=== PATIENT | female | born 1950 | race Caucasian/White ===

== ENCOUNTER 2017-01-13 14:23 | Inpatient (IN) | payer OTHER ==
--- NOTE | ~2017-01-13 | CT2 ---
[facility] A Service of [facility] RADIOLOGY TEXT RESULTS PATIENT: ALEXX GUTIÉRREZ LOCATION: [facility] 55- : [birth year] UNIT #: [id number] AGE: [address]: Brionna Sandra MD SEX: F ORDER DR: [id number] [facility] [address] [place], [place] [address] [id number] I MR#: [id number] Acc #: [id number] NAME: ALEXX GUTIÉRREZ : 1950 SEX: F STUDY DATE/TIME: 01/13/2017 21:37 UNIT: [facility] ROOM: [facility] STUDY DESCRIPTION: CT Abd and Pelv W Cont Attending Physician: Brionna Sandra M.D. Ordering Physician: Julián Arthur M.D. Primary Care Physician: Brionna Sandra M.D. MEDICAL IMAGING REPORT This report is preliminary unless electronic signature is present EXAM CT abdomen and pelvis with oral and IV contrast HISTORY Epigastric pain for [address]. [address] abdomen and pelvis was performed with oral and IV contrast. This CT exam was performed with one or more of the following radiation dose reduction techniques: Automatic exposure control, adjustment of mA and/or kV according to patient size, and iterative reconstruction. CT ABDOMEN: Incidental 1.5-cm cyst in the left margin of the hepatic dome. Incidental pneumobilia. Cholecystectomy. Mild extrahepatic biliary ductal dilatation, likely physiologic. The spleen, pancreas, and adrenal glands are unremarkable. Mild ectasia of the mid abdominal aorta measuring up to 2.8 cm. Mild multifocal parenchymal scarring in both kidneys. Incidental punctate calcification in the head of the pancreas. No ascites. No inflammatory stranding. No bowel dilatation. CT PELVIS: Normal appendix. Hysterectomy. No free fluid. Urinary bladder is normal. No bowel wall thickening. Spine stimulator power pack over the posterior left pelvis with leads extending into the lower thoracic canal. IMPRESSION 1. No acute findings in the abdomen or pelvis. 2. No inflammatory changes or free fluid. 3. Cholecystectomy and hysterectomy. 4. Normal appendix. 5. Ectasia of the infrarenal abdominal aorta measuring 2.8 cm. 6. Mild parenchymal scarring in both kidneys. [facility]. [facility] A Service of [facility] RADIOLOGY TEXT RESULTS PATIENT: ALEXX GUTIÉRREZ LOCATION: [facility] [id number] : [birth year] UNIT #: [id number] AGE: [address]: Brionna Sandra MD SEX: F ORDER DR: Dictated by... Shar Nance M.D. THIS IS AN ELECTRONICALLY VERIFIED REPORT Shar Nance M.D. at 01/14/2017 2:03 PM DFL/bill TD: 01/14/2017 00:39 JOB #: [id number] MEDICAL IMAGING REPORT Page 1 of 1 COPY
--- NOTE | ~2017-01-13 | A ---
[facility] Therapy DATE: 01/14/17 Patient: ALEXX GUTIÉRREZ Physician: NAISAR Address: [address] [facility] Room/Bed: [address] [place] [address], Zip: [place] [phone] Admit Date: 01/13/17 Date of : 54 Height: Weight: 132 60 NUTRITIONAL ASSESSMENT: REASON: 4 NUTRITION RISK PT RE: POOR PO INTAKE + WEIGHT LOSS, ALSO CONSULT RE: WEIGHT LOSS PT IS 66 Y.O. FEMALE ADMITTED FOR ABDOMINAL PAIN PMH: GALLSTONE PANCREATITIS, GALLBLADDER DISEASE, HTN, ANXIETY, DEPRESSION, DYSLIPIDEMIA, COPD Anthropometrics: 4'10", WT: 132# (PER PT) (60 KG), BMI: 27.6 Labs: GFR: 53.0 Meds: PROTONIX, ZOFRAN, D5% I/O & Bowel function: -/1836, 1 BM NOTED Skin Integrity: NO KNOWN SKIN ISSUES Estimated Nutrition Needs: INCREASED NEEDS 2' WEIGHT LOSS NOTED, DECREASED PO INTAKE AND APPETITE NOTED Assessment: CHART REVIEWED AND EVENTS NOTED. PT SEEN FOR WEIGHT LOSS + POOR PO INTAKE. PT FEELING NAUSEOUS AND C/O MIGRAINE AT TIME OF VISIT CONFIRMING DECREASED PO INTAKE 2' DECREASED APPETITE PAST MONTH. PT REPORTS LOSING ~15# PAST MONTH/SEVERE WEIGHT LOSS NOTED (PT NOTES UBW IS ~145#). THIS RD ENCOURAGED SLOW GRADUAL PO INTAKE + SUPPLEMENT INTAKE, PT AGREED TO ENSURE SHAKES BID + 6 SMALL MEALS, RD TO ORDER. OF NOTE, RD ATTEMPTED TO PROVIDE WRITTEN AND VERBAL HH/LOW FAT DIET EDUCATION, BUT PT NOT APPROPRIATE FOR EDUCATION AT THIS TIME. (RD LEFT WRITTEN DIET EDUCATION AT BEDSIDE). RD TO FOLLOW AND MAKE RECOMMENDATIONS BELOW. Dx: INADEQUATE PROTEIN-ENERGY INTAKE R/T CURRENT DIAGNOSIS, CURRENT CLINICAL CONDITION, DECREASED APPETITE AEB PT REPORT ABOVE, ~15# WEIGHT LOSS NOTED IN PAST MONTH. Intervention: 1. REGULAR DIET 2. ENSURE SHAKES BID Monitoring, Evaluation and Goals: 1. ORAL INTAKE; ONCE INITIATED, CONSUME/TOLERATE >50% OF MEALS AND SUPPLEMENTS 2. WEIGHTS; PREVENT FURTHER WEIGHT LOSS 3. GI; PROMOTE REGULAR GI FUNCTION MONITOR: [facility] DATE: 01/14/17 Patient: ALEXX GUTIÉRREZ Physician: LUISISAR Address: [address] [facility] Room/Bed: [facility], Zip: [place] [address] Admit Date: 01/13/17 Date of : 54 Height: Weight: 132 60 -PO INTAKE/APPETITE -WEIGHTS -SUPPLEMENT INTAKE -EDUCATION NEEDS Recommendations: 1. PLEASE ORDER AILEEN ENSURE SHAKES BID W/MEALS FOR ADDITIONAL PROTEIN AND KCAL 2. PLEASE ADD 6 SMALL MEALS TO CURRENT DIET ORDER TO BETTER FACILITATE PO INTAKE 3. APPRECIATE FAMILY AND STAFF TO ENCOURAGE ADEQUATE PO INTAKE, ASSIST W/ORDERING MEALS NEEDED 4. RD TO F/U ON EDUCATION NEEDS RD WILL F/U PER PROTOCOL PT IS MODERATELY COMPROMISED Respectfully, ARTURO RUSSO MS, RD, LD [facility] cc: client file
--- NOTE | ~2017-01-13 | OR ---
Unit #: [id number] #: [id number] Patient: ALEXX GUTIÉRREZ [id number] [address] [address] [id number] I MR#: [id number] NAME: ALEXX GUTIÉRREZ ROOM: 553 Date of Procedure: 01/14/2017 Admission Date: 01/13/2017 Surgeon: Julián Arthur M.D. : 1950 Attending Physician: Brionna Sandra M.D. Primary Care Physician: Brionna Sandra M.D. OPERATIVE REPORT JOB NOTE: CC: PRIMARY CARE PHYSICIAN PROCEDURE PERFORMED Esophagogastroduodenoscopy with biopsy INDICATIONS FOR PROCEDURE A 66-year-old female with significant epigastric and right upper quadrant pain, undergoing evaluation of upper endoscopy. CT scan and lab work has been negative. MEDICATIONS Monitored anesthesia. POSTOPERATIVE FINDINGS 1. Normal esophagus. 2. 6 mm antral ulcer along with significant gastritis and duodenitis. Biopsies taken looking for H pylori. PLAN Continue PPI therapy. Follow up on the pathology report. DESCRIPTION OF PROCEDURE The patient was explained of the procedure, risks, and benefits along with risks and benefits of anesthesia. She was brought to the endoscopy room. Propofol anesthesia was given. Bite block was placed. The scope was passed down the mouth into esophagus, stomach, duodenum, and distal duodenum. Findings as described. Biopsies were taken. Gently, I pulled the scope of the patient's mouth. She tolerated it well. Dictated by... Clay Stanton/micheal TD: 01/14/2017 11:13 JOB #: [id number] Unit #: [id number] #: [id number] Patient: ALEXX GUTIÉRREZ OPERATIVE REPORT Page 1 of 1 X Julián Arthur MD X PROCEDURE OPERATIVE NOTE
--- NOTE | ~2017-01-13 | CT71 ---
[facility] A Service of [facility] RADIOLOGY TEXT RESULTS PATIENT: ALEXX GUTIÉRREZ LOCATION: [place] [address] : [birth year] UNIT #: [id number] AGE: [address]: Brionna Sandra MD SEX: F ORDER DR: [id number] [facility] [address] [place], [place] [address] [id number] I MR#: [id number] Acc #: [id number] NAME: ALEXX GUTIÉRREZ : 1950 SEX: F STUDY DATE/TIME: 01/14/2017 15:56 UNIT: C5B ROOM: [facility] STUDY DESCRIPTION: CT Head Wo Contrast Attending Physician: Brionna Sandra M.D. Ordering Physician: Lele Darby M.D. Primary Care Physician: Brionna Sandra M.D. MEDICAL IMAGING REPORT This report is preliminary unless electronic signature is present EXAM CT scan of the head without contrast HISTORY Severe headache, dizziness for 3 days. Pain in back of head. COMPARISON 01/26/2010. TECHNIQUE This CT exam was performed with one or more of the following radiation dose reduction techniques: automatic control, adjustment of mA and/or kV according to patient size, and iterative reconstruction. FINDINGS Axial noncontrast images were obtained from the skull base to the vertex. Ventricular size and configuration are normal. There is no evidence of acute infarct or hemorrhage. There are no extra-axial fluid collections. No mass lesion or mass effect is seen. There are no skull fractures. IMPRESSION Normal noncontrast head CT. Dictated by... Moncho Rodriguez M.D. THIS IS AN ELECTRONICALLY VERIFIED REPORT Moncho Rodriguez M.D. at 01/15/2017 9:[address] [facility] A Service [facility] RADIOLOGY TEXT RESULTS PATIENT: ALEXX GUTIÉRREZ LOCATION: [place] [address] : [birth year] UNIT #: [id number] AGE: [address]: Brionna Sandra MD SEX: F ORDER DR: JOSEPH/esteban TD: 01/14/2017 18:50 JOB #: [id number] MEDICAL IMAGING REPORT Page 1 of 1 COPY
--- NOTE | ~2017-01-13 | HP ---
Unit #: [id number] #: [id number] Patient: ALEXX GUTIÉRREZ [id number] [address] [place], [place] [address] [id number] I MR#: [id number] NAME: ALEXX GUTIÉRREZ ROOM: 553 Age: 66 Sex: F Admission Date: 01/13/2017 : 1950 Attending Physician: Brionna Sandra M.D. Primary Care Physician: Brionna Sandra M.D. HISTORY AND PHYSICAL ADMISSION DIAGNOSES 1. Abdominal pain. 2. History of gallstone pancreatitis. 3. Axillary hypertension. 4. Chronic obstructive pulmonary disease. 5. History of depression/anxiety. 6. Continuous tobacco use. HISTORY OF PRESENT ILLNESS Ms. Gutiérrez is a 66-year-old female, patient of Dr. Gann, who was seen at Dr. Gann's office today secondary to epigastric abdominal pain and, due to the fact that patient does have a history of gallstone pancreatitis in the past, the patient was directly admitted to the [facility]. She complains of epigastric pain without any radiation to any other parts of the body. Denies any nausea or vomiting, denies any shortness of air or diaphoresis, denies any headache/dizziness, denies any fever or chills or diarrhea. States that the pain is sharp and 10 out of 10 at the worst, alleviated only with the pain medicine. She is allergic to Dilaudid and she was started on morphine but, however, she states that morphine wears away pretty quickly. REVIEW OF SYSTEMS Twelve point review of systems on this patient is basically negative except as above. PAST MEDICAL HISTORY Significant for: 1. History of hypertension. 2. Dyslipidemia. 3. Migraine headaches. 4. COPD. 5. Biliary pancreatitis. PAST SURGICAL HISTORY Significant for: 1. . 2. Hysterectomy. 3. Cholecystectomy. HOME MEDICATIONS I don't have in front of me but this will be clarified with the pharmacy and patient will be restarted accordingly. ALLERGIES Unit #: [id number] #: [id number] Patient: ALEXX GUTIÉRREZ No known drug allergies. SOCIAL HISTORY She is an active smoker. Denies any alcohol or illicit drugs. FAMILY HISTORY Unremarkable. PHYSICAL EXAMINATION GENERAL: The patient is a 66-year-old female who is in tears secondary to pain. VITAL SIGNS: Blood pressure 184/80, heart rate 58, respirations 17, temperature 98. HEENT: Head is atraumatic. Pupils equal, round and reactive to light and accommodation. Extraocular muscles intact. Oropharynx clean. NECK: Supple. No masses, no JVD, no bruits. CHEST: Diminished at the bases but generally clear. CARDIOVASCULAR: S1, S2. No murmurs. ABDOMEN: Soft. Tender to epigastric area. No rebound. Bowel sounds are diminished. EXTREMITIES: Lower extremities without any cyanosis, clubbing or edema. NEUROLOGICAL: Patient without any focal deficits. Alert and oriented and answering questions appropriately. LABS AND DIAGNOSTICS Chemistry significant for slightly decreased GFR at 59. Otherwise, LFTs within normal limits. Amylase and lipase 29 and 36. White count 10.1. H and H 13 and 40. Platelets 190. ASSESSMENT AND PLAN 1. Abdominal pain: Will check CT abdomen and pelvis, status post evaluation per GI. Keep NPO after midnight. (1) due to the fact that patient's old chemistry panel is unremarkable, will also look into cardiac causes. Will check the cardiac enzymes x2 six hours apart. Will consider cardiology evaluation if needed. 2. Accelerated hypertension: Transfer to tele bed. IV hydralazine p.r.n. 3. History of chronic obstructive pulmonary disease at the baseline. 4. History of depression/anxiety: Will resume home meds. 5. History of tobacco use: Will staff counselor on the importance of quitting tobacco. GI and DVT prophylaxis and PPI and SCDs. Dictated by Clay Herron/nahun TD: 01/14/2017 06:51 JOB #: [id number] Unit #: [id number] #: [id number] Patient: ALEXX GUTIÉRREZ HISTORY AND PHYSICAL Page 1 of 1 X Lele Darby MD HISTORY AND PHYSICAL
--- NOTE | ~2017-01-13 | DS ---
Unit #: [id number] #: [id number] Patient: ALEXX GUTIÉRREZ [id number] [address] [address] [id number] I MR#: [id number] NAME: ALEXX GUTIÉRREZ ROOM: 553 Age: 66 Sex: F Admission Date: 01/13/2017 : 1950 Discharge Date: 01/15/2017 Attending Physician: Brionna Sandra M.D. Primary Care Physician: Brionna Sandra M.D. DISCHARGE SUMMARY DISCHARGE DIAGNOSES 1. Abdominal pain with some nausea and vomiting: Results - unremarkable CT abdomen, status post esophagogastroduodenoscopy and gastrointestinal evaluation that showed some gastritis and duodenitis. 2. Headache, also resolved: Status post negative CT. 3. Chronic obstructive pulmonary disease at the baseline. 4. Depression/anxiety: Continue home medications. DISCHARGE MEDICATIONS 1. Lexapro 10 mg daily. 2. Claritin 10 mg daily. 3. Lopressor 50 mg b.i.d. 4. Namenda 10 mg b.i.d. 5. Aricept 10 mg daily. 6. Lipitor 40 mg daily. 7. Zestril 10 mg daily. 8. Hydrocodone 10 mg/325, one tablet t.i.d. p.r.n. for pain. 9. Protonix 40 mg daily. 10. Flexeril 10 mg b.i.d. 11. Vitamin D 50,000 units daily. CONSULTS DURING THIS HOSPITAL STAY GI - Dr. Arthur. LABS, DIAGNOSTICS AND PROCEDURES DURING THIS HOSPITAL STAY Again, EGD with gastritis and duodenitis. CT abdomen and pelvis, again without any acute findings. CT head without contrast, also normal. HISTORY OF PRESENT HOSPITAL STAY Please refer to H and P done by me for initial presentation on this female. ACTIVE PROBLEMS AND DIAGNOSES Abdominal pain: Status post negative CT abdomen, status post GI evaluation, status post EGD. Continue PPI. Follow up with Dr. Arthur as an outpatient. Headache, again, resolved: Was treated with some Ultram, some IV Toradol. Negative CT of the head. Headache resolved. Continue home [place]. Script for 24 pills given. Unit #: [id number] #: [id number] Patient: ALEXX GUTIÉRREZ Chronic obstructive pulmonary disease, stable, at the baseline. Depression/anxiety: Continue home medications. DISPOSITION Going home. Outpatient followup with primary care physician. Outpatient followup with GI. Dictated by... Clay Herron/nahun TD: 01/16/2017 09:45 JOB #: [id number] DISCHARGE SUMMARY Page 1 of 1 X Lele Darby MD X DISCHARGE SUMMARY
[~2017-01-13 14:23] MED LIST: ALBUTEROL0.83 MG/ML IH; AUGMENTIN875 MG PO; AVELOX400 MG PO; CENTRUM PO; COLACE PO; DOCU SOFT100 M1 PO; DYAZIDE 37.5/251 CAP PO; FAMOTIDINE PO; FAMOTIDINE10 MG PO; FENOFIBRATE PO; HYDROCODONE-APA1 T30 PO; IBUPROFEN200 M1 PO; IBUPROFEN800 MG PO; K-DUR20 ME1 PO; LEVAQUIN750 MG PO; LISINOPRIL20 MG PO; LOPRESSOR; LOPRESSOR PO; MED FOR GERD; MEDROL PO; METOPROLOL TART25 MG PO; MUCINEX1200 MG/BO PO; NEURONTIN300 MG PO; PEPCID AC20 M2 PO; PERCOCET10 PO; PERCOLONE5 MG PO; PHENERGAN PO; PHENERGAN/CODEIN5 ML PO; PHENERGAN25 MG PO; PRAVACHOL PO; PRAVASTATIN SOD40 MG PO; PREDNISONE10 MG PO; PREDNISONE10 MG/DOSE PO; PRILOSEC20 MG PO; PROAIR HFA8.5 GM INH; PROTONIX PO; ROBAXIN; SYMBICORT INH; VITAMIN D1000 UNI1 PO; ZITHROMAX PO; ZOCOR PO; ZOFRAN PO; [UNRECOGNIZED DRUG - OTHER] PO; [UNRECOGNIZED DRUG - REMARK]
[2017-01-13] MEDS ORDERED: LISINOPRIL10 MG PO (16:50)
[2017-01-13] MEDS ORDERED: FLEXERIL10 MG PO (16:50)
[2017-01-13] MEDS ORDERED: NAMENDA10 MG PO (16:50)
[2017-01-13] MEDS ORDERED: LEXAPRO PO (16:51)
[2017-01-13] MEDS ORDERED: LIPITOR40 MG PO (16:51)
[2017-01-13] MEDS ORDERED: ALLERGY10 M1 PO (16:51)
[2017-01-13] MEDS ORDERED: (NONE)1 CA1 PO (16:53)
[2017-01-13] MEDS ORDERED: DONEPEZIL HCL10 MG PO (16:54)
[2017-01-13] MEDS ORDERED: HYDROCODON-ACE1 EAC5 PO (16:54)
[2017-01-13 17:23] LABS: HEMOGLOBIN 13.2 gm/dL (12.0-16.0); MEAN CELL VOLUME 97.5 FL (83-96); MEAN CORPUSCULAR HEMOGLOBIN 32.1 PG (28-34); MEAN CORPUSCULAR HGB CONC 32.9 g/dL (30-36); MEAN PLATELET VOLUME 8.3 FL (6.5-11.5); RED BLOOD COUNT 4.1 X10e (3.90-5.30); RED CELL DISTRIBUTION WIDTH 13.8 % (11.0-15.5); WHITE BLOOD COUNT 10.1 X10e3 (4.0-10.5)
[2017-01-13 17:42] LABS: ALBUMIN SERUM 4.1 g/dL (3.5-5.0); BILIRUBIN,TOTAL 0.5 mg/dL (0.2-2.0); BUN/CREATININE RATIO 14.54; CALCIUM SERUM 9.2 mg/dL (8.4-10.2); CREATININE SERUM 1.1 mg/dL (0.6-1.4); POTASSIUM 4.5 mmol/L (3.5-5.1); PROTEIN TOTAL SERUM 6.9 g/dL (6.0-8.3)
[2017-01-15 06:12] LABS: BASOPHIL# 0.1 X10e3 (0-0.3); BASOPHIL% 0.8 % (0-2.5); EOSINOPHIL# 0.1 X10e3 (0-0.7); EOSINOPHIL% 1.1 % (0.0-7.0); HEMATOCRIT 35.4 % (35.0-45.0); HEMOGLOBIN 11.5 gm/dL (12.0-16.0); LYMPHOCYTE% 29.2 % (17.0-45.0); MEAN CELL VOLUME 97.6 FL (83-96); MEAN CORPUSCULAR HEMOGLOBIN 31.7 PG (28-34); MEAN CORPUSCULAR HGB CONC 32.5 g/dL (30-36); MEAN PLATELET VOLUME 8.7 FL (6.5-11.5); MONOCYTE# 0.7 X10e3 (0-1.0); MONOCYTE% 6.4 % (3.0-12.0); NEUTROPHIL# 6.5 X10e3 (1.5-7.1); NEUTROPHIL% 62.5 % (40-75); PLATELET COUNT 175 X10e3 (140-420); RED BLOOD COUNT 3.63 X10e (3.90-5.30); RED CELL DISTRIBUTION WIDTH 13.5 % (11.0-15.5); WHITE BLOOD COUNT 10.3 X10e3 (4.0-10.5)
[2017-01-15 06:16] LABS: DIFF IND NO
[2017-01-15 06:57] LABS: ALBUMIN SERUM 3.3 g/dL (3.5-5.0); BILIRUBIN,TOTAL 0.5 mg/dL (0.2-2.0); BUN/CREATININE RATIO 11.81; CALCIUM SERUM 8.5 mg/dL (8.4-10.2); CREATININE SERUM 1.1 mg/dL (0.6-1.4); POTASSIUM 3.6 mmol/L (3.5-5.1)
[2017-01-15] MEDS ORDERED: PROTONIX PO (18:54)
[2017-01-15] MEDS ORDERED: LORTAB 10-3251 EACH PO (18:55)
== END 2017-01-15 20:00 | disposition home or self-care (01) | DRG 392 ==
LOC: C5B 15:49 → C2A 15:49 → C5B 21:56
PROVIDERS: Hospitalist; Internal Medicine
PROC: 0DB68ZX Excision of Stomach, Via Natural or Artificial Opening Endoscopic, Diagnostic (ICD-10-PCS; principal; 2017-01-14 10:44)
DX: K29.70 Gastritis, unspecified, without bleeding (principal); K25.9 Gastric ulcer, unspecified as acute or chronic, without hemorrhage or perforation; K29.80 Duodenitis without bleeding; J44.9 Chronic obstructive pulmonary disease, unspecified; F32.9 Major depressive disorder, single episode, unspecified; F41.9 Anxiety disorder, unspecified; I10 Essential (primary) hypertension; Z90.49 Acquired absence of other specified parts of digestive tract; Z90.710 Acquired absence of both cervix and uterus; F17.210 Nicotine dependence, cigarettes, uncomplicated
CPT/HCPCS: 70450; 74177; 80053; 82150; 82550; 83690; 84484; 85025; 85027; 88305; 88312; C9113; J0360; J1885; J2270; J2405; Q9967